=== PATIENT | male | born 1975 | race Two or more races ===

== ENCOUNTER 2022-03-06 23:19 | Emergency (ER) | payer SELFPAY ==
[~2022-03-06] VITALS: Ht 165.1 cm; Wt 72.6 kg
[2022-03-07 00:14] VITALS: BP 137/83
== END 2022-03-07 02:21 | disposition left against medical advice (07) ==
LOC: ER 23:19
DX: S80.02XA Contusion of left knee, initial encounter (principal); W22.8XXA Striking against or struck by other objects, initial encounter; Y93.89 Activity, other specified; Y92.89 Other specified places as the place of occurrence of the external cause; Y99.8 Other external cause status
CPT/HCPCS: 73562